=== PATIENT | male | born 1940 | race Caucasian/White ===

== ENCOUNTER → 2016-08-01 | Outpatient (CLI) | payer OTHER | END | disposition home or self-care (01) | LOC: PCVCCLINIC 15:34 | PROVIDERS: ATTEND Nuclear Medicine Nuclear Cardiology | DX: R55 Syncope and collapse (principal); E78.00 Pure hypercholesterolemia, unspecified; Z95.828 Presence of other vascular implants and grafts | CPT/HCPCS: G0463 ==

== ENCOUNTER → 2016-08-06 | Outpatient (CLI) | payer OTHER ==
[~2016-08-06] MED LIST: DIAZEPAM 10 MG TABLET. ONE; HEPARIN SODIUM 5,000 UNIT/ML VIAL for PCVC. ONE; HEPARIN for ARTERIAL LINE 0 ML ONE; IOHEXOL 300 MG/ML 100ML VIAL. ONE; IOHEXOL 300 MG/ML 50 ML VIAL. ONE; IV NORMAL SALINE 1000ML BAG 1,000 ML ONE; LIDOCAINE 1% Multi-Dose 20 ML VIAL. ONE; MIDAZOLAM HCL/PF 2 MG/2 ML VIAL. ONE; fentaNYL PF VIAL 100 MCG/2 ML VIAL ONE
== END | disposition home or self-care (01) ==
LOC: PCVCINTER 11:58
PROVIDERS: ATTEND Nuclear Medicine Nuclear Cardiology
DX: E78.5 Hyperlipidemia, unspecified (principal); E11.9 Type 2 diabetes mellitus without complications; Z46.89 Encounter for fitting and adjustment of other specified devices
CPT/HCPCS: 37193; 99152; 99153; C1751; C1769; C1773; C1894; J1644; J2250; J3010; J7030; Q9967